=== PATIENT | female | born 1980 | race Caucasian/White ===

== ENCOUNTER → 2018-04-30 | Outpatient (CLI) | payer OTHER | END | disposition home or self-care (01) | LOC: PCVCIMAG 08:19 | DX: I34.1 Nonrheumatic mitral (valve) prolapse (principal); I34.0 Nonrheumatic mitral (valve) insufficiency; E78.5 Hyperlipidemia, unspecified; E88.81 Metabolic syndrome and other insulin resistance; O90.3 Peripartum cardiomyopathy; Z87.891 Personal history of nicotine dependence; Z79.82 Long term (current) use of aspirin; Z79.84 Long term (current) use of oral hypoglycemic drugs; Z88.8 Allergy status to other drugs, medicaments and biological substances | CPT/HCPCS: 80061; 93005; 93306 ==

== ENCOUNTER → 2019-04-21 | Outpatient (CLI) | payer BC ==
--- NOTE | 2019-04-21 09:57 | PCVCIMAG ---
APPROVED REPORT Study performed: 04/21/2019 08:53:17 EXAM: Comprehensive 2D, Doppler, and color-flow Echocardiogram Patient Location: Echo lab Status: routine BSA: 1.76 HR: 83 bpmBP: 124/80 mmHg Rhythm: NSR Other Information Study Quality: Adequate Risk Factors: Cardiac Risk Factors: Hyperlipidemia Indications Mitral Valve Prolapse 2D Dimensions IVSd: 11.66 (7-11mm)LVOT Diam: 20.00 (18-24mm) LVDd: 36.87 mm PWd: 12.82 (7-11mm)Ascending Ao: 29.56 (22-36mm) LVDs: 25.78 (25-40mm) Left Atrium: 37.83 (27-40mm) Aortic Root: 25.59 mm LV Single Plane 4CH: 66.46 % Biplane EF: 57.8 % Volumes Left Atrial Volume (Systole) Single Plane 4CH: 37.54 mLSingle Plane 2CH: 65.72 mL LA ESV Index: 29.00 mL/m2 Aortic Valve AoV Peak Armand.: 1.17 m/s AO Peak Gr.: 5.52 mmHgLVOT Max P.45 mmHg LVOT Max V: 0.78 m/s HANK Vmax: 2.10 cm2 Mitral Valve E/A Ratio: 1.2 MV Decel. Time: 270.82 ms MV E Max Armand.: 0.82 m/s MV A Armand.: 0.71 m/s IVRT: 89.97 ms TDI E/Lateral E': 9.11E/Medial E': 13.67 Medial E' Armand.: 0.06 m/s Lateral E' Armand.: 0.09 m/s Pulmonary Valve PV Peak Armand.: 0.85 m/sPV Peak Gr.: 2.86 mmHg Pulmonary Vein P Vein S: 0.73 m/sP Vein A: 0.76 m/s P Vein D: 0.72 m/sP Vein A Dur.: 107.3 msec P Vein S/D Ratio: 1.01 Tricuspid Valve TR Peak Armand.: 2.12 m/sRAP Estimate: 7.00 mmHg TR Peak Gr.: 17.92 mmHg PA Pressure: 25.00 mmHg Left Ventricle The left ventricle is normal size. There is normal LV segmental wall motion. Borderline concentric left ventricular hypertrophy. Left ventricular systolic function is normal. The left ventricular ejection fraction is within the normal range. LVEF is 60-65%. The left ventricular diastolic function is normal. Right Ventricle The right ventricle is normal size. The right ventricular systolic function is normal. Atria The left atrium size is normal. The right atrium size is normal. Aortic Valve The aortic valve is normal in structure. No aortic regurgitation is present. There is no aortic valvular stenosis. 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 Moderate mitral regurgitation. No evidence of mitral valve stenosis. Tricuspid Valve The tricuspid valve is normal in structure. Trace tricuspid regurgitation.Pulmonary artery pressure is 25 mmHg. Pulmonic Valve The pulmonary valve is normal in structure. There is no pulmonic valvular regurgitation. Great Vessels The aortic root is normal in size. The ascending aorta is normal in size. IVC is normal in size and collapses >50% with inspiration. Pericardium There is no pericardial effusion. <Conclusion> Left ventricular systolic function is normal. There is normal LV segmental wall motion. LVEF is 60-65%. The aortic valve is normal in structure. No aortic regurgitation or stenosis. 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 Moderate to moderately severe mitral regurgitation. Trace tricuspid regurgitation. Pulmonary artery pressure of 25 mmHg. There is no pericardial effusion.
== END | disposition home or self-care (01) ==
LOC: PCVCIMAG 08:47
PROVIDERS: ATTEND Internal Medicine
DX: I34.1 Nonrheumatic mitral (valve) prolapse (principal); I34.0 Nonrheumatic mitral (valve) insufficiency
CPT/HCPCS: 93306

== ENCOUNTER → 2019-10-10 | Outpatient (CLI) | payer BC ==
--- NOTE | 2019-10-10 15:54 | PCVCIMAG ---
EXAM: BILATERAL RENAL ULTRASOUND AND BILATERAL RENAL DUPLEX INDICATION: Hypertension FINDINGS: Right kidney: Length measures 11.3 cm. No hydronephrosis or extensive renal scarring. Right renal duplex: Adequate technical quality. No sonographic evidence of renal artery stenosis. The aortic to renal artery ratio is 1.6. The renal vein is patent. Left kidney: Length measures 11.9 cm. No hydronephrosis or extensive renal scarring. Left renal duplex: Adequate technical quality. No sonographic evidence of renal artery stenosis. The aortic to renal artery ratio is 2.0. The renal vein is patent. Bladder: No obvious abnormalities. IMPRESSION: No significant renal artery stenosis. No hydronephrosis bilaterally. LOC:[id number]
== END | disposition home or self-care (01) ==
LOC: PCVCIMAG 07:40
PROVIDERS: ATTEND Internal Medicine
DX: I10 Essential (primary) hypertension (principal); E78.5 Hyperlipidemia, unspecified
CPT/HCPCS: 76770; 93975